=== PATIENT | male | born 1980 | race African-American/Black ===

== ENCOUNTER 2016-08-18 19:08 | Emergency (ER) | payer SELFPAY ==
[~2016-08-18] VITALS: Ht 193 cm; Wt 85.2 kg
[~2016-08-18 19:08] MED LIST: FLEXERIL5 MG PO; KEFLEX500 MG PO; MOTRIN800 MG PO; NAPROSYN375 MG PO; NO HOME MEDS; ZITHROMAX250 MG OR; ZITHROMAX250 MG PO
[2016-08-18] MEDS ORDERED: KEFLEX500 MG PO (20:26)
[2016-08-18 20:39] VITALS: BP 131/77
== END 2016-08-18 20:43 | disposition home or self-care (01) | DRG 159 ==
LOC: ED 19:08
PROC: 0CQ1XZZ Repair Lower Lip, External Approach (ICD-10-PCS; principal; 2016-08-18)
PROC: 0CQ0XZZ Repair Upper Lip, External Approach (ICD-10-PCS; 2016-08-18)
DX: S01.511A Laceration without foreign body of lip, initial encounter (principal); Y04.0XXA Assault by unarmed brawl or fight, initial encounter

== ENCOUNTER 2020-08-12 06:22 | Emergency (ER) | payer SELFPAY ==
[2020-08-12 07:21] VITALS: BP 129/84
== END 2020-08-12 07:21 | disposition home or self-care (01) | DRG 605 ==
LOC: ED 06:22
PROC: 0HQFXZZ Repair Right Hand Skin, External Approach (ICD-10-PCS; principal; 2020-08-12)
DX: S61.212A Laceration without foreign body of right middle finger without damage to nail, initial encounter (principal); S61.210A Laceration without foreign body of right index finger without damage to nail, initial encounter; F17.200 Nicotine dependence, unspecified, uncomplicated; W26.8XXA Contact with other sharp object(s), not elsewhere classified, initial encounter; Y93.G3 Activity, cooking and baking; Y92.000 Kitchen of unspecified non-institutional (private) residence as the place of occurrence of the external cause

== ENCOUNTER 2023-10-27 07:22 | Emergency (ER) | payer SELFPAY ==
[~2023-10-27] VITALS: Ht 193 cm; Wt 91.8 kg
[2023-10-27] MEDS ORDERED: ASPIRIN 81 MG/TAB PO ONE (07:30)
[2023-10-27 07:34] VITALS: BP 123/87
[2023-10-27] MEDS ORDERED: ASPIRIN 81 MG/TAB ONE (07:47)
[2023-10-27 07:57] LABS: BASO% 0.6 % (0-3); EOS% 0.9 % (0-8); HEMATOCRIT 44.8 % (39.0-50.0); HEMOGLOBIN 14.3 g/dl (14.0-18.0); IMMATURE GRANULOCYTES 0.6 % (0.0-5.0); LYMPH% 20.8 % (15-41); MEAN CORPUSCULAR HGB 27.8 pG CALC (26.0-32.0); MEAN CORPUSCULAR HGB CONC 31.9 g/dL CAL (32.0-36.0); MONO% 18.4 % (2-13); NEUT# 2.01 thou/uL (1.82-7.42); NEUT% 58.7 % (42-76); RED BLOOD COUNT 5.15 mill/uL (4.70-6.10); RED CELL DISTRI WIDTH 13.3 % (11.5-15.5)
[2023-10-27 08:00] VITALS: BP 125/83
[2023-10-27 08:06] LABS: ALBUMIN 4.2 g/dL (3.2-5.0); ALKALINE PHOSPHATASE 65 u/l (38-126); ANION GAP 6 (6-22 (CALC)); BILIRUBIN, TOTAL 0.5 mg/dL (0.2-1.3); BUN 15 mg/dL (9-20); BUN/CREATININE RATIO 9 (12-20 (CALC)); CARBON DIOXIDE 29 mmol/l (22-30); CHLORIDE 109 mmol/l (95-108); CREATININE 1.7 mg/dL (0.7-1.3); ESTIMATED GFR 51 ML/MIN (>=90 (CALC)); POTASSIUM 4.1 mmol/l (3.5-5.1); SGOT/AST 29 u/l (17-59); SODIUM 140 mmol/l (137-146); TOTAL PROTEIN 7.8 g/dL (6.3-8.2)
[2023-10-27 08:31] VITALS: BP 123/82
[2023-10-27] MEDS ORDERED: PAXLOVID PO ×2 (08:45→12:48)
[2023-10-27 08:52] VITALS: BP 128/84
[2023-10-27 09:01] VITALS: BP 117/87
== END 2023-10-27 09:05 | disposition home or self-care (01) | DRG 179 ==
LOC: ED 07:22
PROVIDERS: Family Medicine
DX: U07.1 COVID-19 (principal); R07.9 Chest pain, unspecified; R05.9 Cough, unspecified; R50.9 Fever, unspecified; F17.200 Nicotine dependence, unspecified, uncomplicated; N18.9 Chronic kidney disease, unspecified